=== PATIENT | female | born 1995 | race Caucasian/White ===

== ENCOUNTER 2017-07-25 13:00 | Emergency (ER) | payer OTHER ==
[2017-07-25] MEDS ORDERED: SODIUM CHLORIDE 0.9% 1000ML 1,000 ML IV ONE (13:11)
[2017-07-25] MEDS ORDERED: ONDANSETRON HCL 4 MG/2 ML SOL IV ONE (13:12)
[2017-07-25 13:19] LABS: APPEARANCE,URINE Cloudy; BILIRUBIN,URINE NEGATIVE (NEGATIVE); COLOR,URINE Yellow; GLUCOSE, URINE (UA) NEGATIVE (NEGATIVE); KETONES,URINE NEGATIVE (NEGATIVE); LEUKOCYTE ESTERASE ,URINE NEGATIVE (NEGATIVE); NITRATE,URINE NEGATIVE (NEGATIVE); OCCULT BLOOD,URINE NEGATIVE (NEG-TRACE); PH,URINE 8.5; UROBILINOGEN,URINE 0.2 (0.2-1.0 EU)
[2017-07-25] MEDS ORDERED: ONDANSETRON HCL 4 MG/2 ML SOL ONE (13:29)
[2017-07-25 13:32] LABS: BASOPHILS % (AUTO) 1 % (0-3); EOSINOPHILS % (AUTO) 1 % (0-9); HEMATOCRIT 40 % (35-47); HEMOGLOBIN 14.1 gm/dl (12.0-15.5); LYMPHOCYTES % (AUTO) 16.3 % (10-50); MEAN CORPUSCULAR HEMOGLOBIN 31.1 pg (27.0-32.0); MEAN CORPUSCULAR HGB CONC 35.3 gm/dl (32.0-36.0); MEAN CORPUSCULAR VOLUME 88 fL (81-99); MONOCYTES % (AUTO) 9.2 % (0-12); NEUTROPHILS % (AUTO) 73.2 % (37-80)
[2017-07-25 13:38] LABS: CRYSTALS 2+ (0-3 AVE/HPF); RBC,URINE NEGATIVE (0-3AV/HPF)
[2017-07-25 13:39] LABS: BACTERIA NEGATIVE (< 1+)
[2017-07-25 13:42] LABS: ALBUMIN 3.5 gm/dl (3.4-5.0); BILIRUBIN,TOTAL 0.3 mg/dl (0.2-1.0); CALCIUM 9.1 mg/dl (8.5-10.1); CARBON DIOXIDE 25.7 mEq/L (21-32); CREATININE 0.89 mg/dl (0.60-1.00); POTASSIUM 3.5 mMol/L (3.5-5.1); TOTAL PROTEIN 7.4 gm/dl (6.4-8.2)
[2017-07-25 13:45] VITALS: RESP 16; TEMP 98.3
[2017-07-25] MEDS ORDERED: SODIUM CHLORIDE 0.9% FLUSH 10 ML SOL IV PRN (13:47)
[2017-07-25 14:28] VITALS: O2SAT 100
[2017-07-25 14:49] VITALS: BP 119/67; PULSE 73
== END 2017-07-25 14:50 | disposition home or self-care (01) | DRG 641 ==
LOC: ED 13:00
DX: E86.0 Dehydration (principal); R42 Dizziness and giddiness; R07.9 Chest pain, unspecified; R61 Generalized hyperhidrosis; R55 Syncope and collapse
CPT/HCPCS: 80053; 81001; 85025; 93005; 96365; 96374; 99283; 99284; J2405

== ENCOUNTER 2018-07-14 18:47 | Observation (INO) | payer OTHER ==
[2018-07-14] MEDS ORDERED: SODIUM CHLORIDE 0.9% 1000ML 1,000 ML IV SCH ×2 (19:15)
[2018-07-14] MEDS ORDERED: SODIUM CHLORIDE 0.9% 1000ML 1,000 ML IV ONE (19:15)
[2018-07-14] MEDS ORDERED: SODIUM CHLORIDE 0.9% FLUSH 10 ML SOL IV PRN (19:18)
[2018-07-14 19:24] LABS: BASOPHILS % (AUTO) 1 % (0-3); EOSINOPHILS % (AUTO) 1 % (0-9); HEMATOCRIT 35 % (35-47); HEMOGLOBIN 11.6 gm/dl (12.0-15.5); LYMPHOCYTES % (AUTO) 15.6 % (10-50); MEAN CORPUSCULAR HGB CONC 33.5 gm/dl (32.0-36.0); MEAN CORPUSCULAR VOLUME 89 fL (81-99); MONOCYTES % (AUTO) 7.3 % (0-12); NEUTROPHILS % (AUTO) 75.8 % (37-80)
[2018-07-14 19:29] LABS: ALBUMIN 2.9 gm/dl (3.4-5.0); BILIRUBIN,TOTAL 0.3 mg/dl (0.2-1.0); CALCIUM 8.5 mg/dl (8.5-10.1); CARBON DIOXIDE 23.8 mEq/L (21-32); CREATININE 0.74 mg/dl (0.60-1.00); TOTAL PROTEIN 6.9 gm/dl (6.4-8.2)
[2018-07-14] MEDS ORDERED: ACETAMINOPHEN 1,000 MG/100 ML VIAL IV ONE (19:30)
[2018-07-14 19:42] LABS: POTASSIUM 2.9 mMol/L (3.5-5.1)
[2018-07-14] MEDS ORDERED: POTASSIUM CHLORIDE 2 MEQ/ML 10 MEQ, LIDOCAINE HCL 1% MDV 2 ML in SODIUM CHLORIDE 0.9% 1... IV ONE (19:43)
[2018-07-14] MEDS ORDERED: ACETAMINOPHEN 500 MG 500 MG TAB PO ONE (19:44)
[2018-07-14] MEDS ORDERED: ACETAMINOPHEN 500 MG 500 MG TAB ONE (19:46)
[2018-07-14] MEDS ORDERED: LIDOCAINE HCL 1% MPF 30 SOL ONE (19:47)
[2018-07-14] MEDS ORDERED: POTASSIUM CHLORIDE 2 MEQ/ML SOL IV ONE (19:47)
[2018-07-14] MEDS ORDERED: ONDANSETRON 4 MG ODT BU ONE (19:49)
[2018-07-14] MEDS ORDERED: ONDANSETRON 4 MG ODT ONE (19:50)
[2018-07-14 20:41] LABS: APPEARANCE,URINE Clear; BILIRUBIN,URINE NEGATIVE (NEGATIVE); COLOR,URINE Yellow; GLUCOSE, URINE (UA) NEGATIVE (NEGATIVE); KETONES,URINE TRACE (NEGATIVE); LEUKOCYTE ESTERASE ,URINE NEGATIVE (NEGATIVE); NITRATE,URINE NEGATIVE (NEGATIVE); OCCULT BLOOD,URINE NEGATIVE (NEG-TRACE); UROBILINOGEN,URINE 0.2 (0.2-1.0 EU)
[2018-07-14 20:49] LABS: BACTERIA NEGATIVE (< 1+); CRYSTALS NEGATIVE (0-3 AVE/HPF); EPITHELIAL CELLS NEGATIVE (SQUAMOUS); RBC,URINE NEG (0-3AV/HPF); WBC,URINE NEG (0-5AV/HPF)
[2018-07-14] MEDS ORDERED: ACETAMINOPHEN 500 MG 500 MG TAB PO PRN (21:44)
[2018-07-14] MEDS ORDERED: APAP/HYDROCODONE 1 EACH TABLET PO PRN (21:44)
[2018-07-14] MEDS: SODIUM CHLORIDE 0.45% 1000 ML 1,000 ML with POTASSIUM CHLORIDE 2 MEQ/ML 20 MEQ IV SCH (22:31)
[2018-07-14] MEDS: POTASSIUM CHLORIDE 10 MEQ TER PO SCH (22:31)
[2018-07-15] MEDS: POTASSIUM CHLORIDE 10 MEQ TER PO SCH (01:28)
[2018-07-15 01:33] VITALS: RESP 16
[2018-07-15 05:42] VITALS: BP 112/67; PULSE 62; TEMP 97.8; O2SAT 100
[2018-07-15 07:27] LABS: CALCIUM 8.4 mg/dl (8.5-10.1); CARBON DIOXIDE 25.1 mEq/L (21-32); CREATININE 0.58 mg/dl (0.60-1.00); POTASSIUM 3.9 mMol/L (3.5-5.1)
[2018-07-15] MEDS: SODIUM CHLORIDE 0.45% 1000 ML 1,000 ML with POTASSIUM CHLORIDE 2 MEQ/ML 20 MEQ IV SCH (08:35)
[2018-07-15] MEDS ORDERED: [UNRECOGNIZED DRUG - REMARK] PO SCH (09:00)
== END 2018-07-15 09:25 | disposition home or self-care (01) | DRG 641 ==
LOC: ED 18:47 → ACUTE CARE 21:34
PROVIDERS: ADMIT Family Medicine; ATTEND Family Medicine
DX: E87.6 Hypokalemia (principal); R10.9 Unspecified abdominal pain; Z3A.33 33 weeks gestation of pregnancy; R11.2 Nausea with vomiting, unspecified; R51 Headache; O26.893 Other specified pregnancy related conditions, third trimester
CPT/HCPCS: 36415; 59025; 80048; 80053; 81001; 85025; 93005; 93012; 99285; J3480; A9270-GY; J2001

== ENCOUNTER 2018-08-14 11:28 | Observation (INO) | payer OTHER ==
[2018-08-14 11:46] VITALS: O2SAT 98
[2018-08-14] MEDS ORDERED: LACTATED RINGERS 1,000 ML IV ONE (13:07)
[2018-08-14] MEDS ORDERED: SODIUM CHLORIDE 0.9% FLUSH 10 ML SOL IV SCH (13:15)
[2018-08-14 13:49] VITALS: BP 107/59; PULSE 80; RESP 18; TEMP 98.8
== END 2018-08-14 15:45 | disposition home or self-care (01) | DRG 833 ==
LOC: OBOP 11:28 → OB 13:03
PROVIDERS: ADMIT Emergency Medicine; ATTEND Emergency Medicine
DX: O47.1 False labor at or after 37 completed weeks of gestation (principal); Z3A.38 38 weeks gestation of pregnancy; O36.8130 Decreased fetal movements, third trimester, not applicable or unspecified
CPT/HCPCS: 36415; 59025; 80048; 81001; 85025; 87088

== ENCOUNTER 2018-08-14 20:38 | Observation (INO) | payer OTHER ==
[2018-08-14 11:46] VITALS: O2SAT 98
[2018-08-14 12:34] LABS: BASOPHILS % (AUTO) 0 % (0-3); EOSINOPHILS % (AUTO) 1 % (0-9); HEMATOCRIT 36 % (35-47); HEMOGLOBIN 11.5 gm/dl (12.0-15.5); LYMPHOCYTES % (AUTO) 14.6 % (10-50); MEAN CORPUSCULAR HEMOGLOBIN 27.9 pg (27.0-32.0); MEAN CORPUSCULAR VOLUME 87 fL (81-99); MONOCYTES % (AUTO) 6.6 % (0-12); NEUTROPHILS % (AUTO) 77.8 % (37-80)
[2018-08-14 12:44] LABS: CALCIUM 8.8 mg/dl (8.5-10.1); CARBON DIOXIDE 24.9 mEq/L (21-32); CREATININE 0.49 mg/dl (0.60-1.00); POTASSIUM 3.6 mMol/L (3.5-5.1)
[2018-08-14 12:49] LABS: APPEARANCE,URINE Clear; BILIRUBIN,URINE NEGATIVE (NEGATIVE); COLOR,URINE Yellow; GLUCOSE, URINE (UA) NEGATIVE (NEGATIVE); KETONES,URINE NEGATIVE (NEGATIVE); LEUKOCYTE ESTERASE ,URINE TRACE (NEGATIVE); NITRATE,URINE NEGATIVE (NEGATIVE); OCCULT BLOOD,URINE 1+ (NEG-TRACE); UROBILINOGEN,URINE 0.2 (0.2-1.0 EU)
[2018-08-14 13:03] LABS: BACTERIA 2+ (< 1+); CRYSTALS NEGATIVE (0-3 AVE/HPF); RBC,URINE 0-1 (0-3AV/HPF); WBC,URINE 0-1 (0-5AV/HPF)
[2018-08-15 01:29] VITALS: BP 118/57; PULSE 68; RESP 20; TEMP 96.8
== END 2018-08-15 07:20 | disposition home or self-care (01) | DRG 833 ==
LOC: OB 20:38
PROVIDERS: ADMIT Family Medicine; ATTEND Family Medicine
DX: O47.1 False labor at or after 37 completed weeks of gestation (principal); Z3A.38 38 weeks gestation of pregnancy; O36.8130 Decreased fetal movements, third trimester, not applicable or unspecified
CPT/HCPCS: 36415; 59025; 80048; 81001; 85025; 87088

== ENCOUNTER 2018-08-26 09:56 | Inpatient (IN) | payer OTHER ==
[2018-08-26] MEDS: SODIUM CHLORIDE 0.9% FLUSH 10 ML SOL IV SCH ×2 (10:15→21:57)
[2018-08-26] MEDS ORDERED: MEPIVACAINE HCL 1% MPF 30 ML/VIAL SOL INFIL PRN (11:25)
[2018-08-26] MEDS ORDERED: SODIUM CHLORIDE 0.9% FLUSH 10 ML SOL IV PRN (11:25)
[2018-08-26] MEDS ORDERED: OXYTOCIN 10000 MU/ML SOL IM PRN (11:25)
[2018-08-26] MEDS ORDERED: CARBOPROST 250 MCG/ML SOL IM PRN (11:25)
[2018-08-26] MEDS ORDERED: LACTATED RINGERS 1,000 ML IV PRN (11:25)
[2018-08-26] MEDS ORDERED: METHYLERGONOVINE MALEATE 0.2 MG/ML SOL IM PRN (11:25)
[2018-08-26] MEDS ORDERED: FENTANYL 100MCG/2ML SOL IV PRN (11:25)
[2018-08-26 13:28] LABS: BASOPHILS % (AUTO) 0 % (0-3); EOSINOPHILS % (AUTO) 1 % (0-9); HEMATOCRIT 38 % (35-47); HEMOGLOBIN 12.6 gm/dl (12.0-15.5); LYMPHOCYTES % (AUTO) 14.2 % (10-50); MEAN CORPUSCULAR HEMOGLOBIN 29.3 pg (27.0-32.0); MEAN CORPUSCULAR HGB CONC 32.8 gm/dl (32.0-36.0); MEAN CORPUSCULAR VOLUME 89 fL (81-99); MONOCYTES % (AUTO) 6.8 % (0-12); NEUTROPHILS % (AUTO) 77.9 % (37-80)
[2018-08-26] MEDS: LACTATED RINGERS 1,000 ML IV SCH ×3 (14:10→17:29)
[2018-08-26] MEDS ORDERED: DIPHENHYDRAMINE 50 MG/ML SOL IV PRN (14:22)
[2018-08-26] MEDS ORDERED: EPHEDRINE SULFATE 50 MG/ML SOL IV PRN (14:22)
[2018-08-26] MEDS ORDERED: NALBUPHINE HCL 20 MG/ML SOL IV PRN (14:22)
[2018-08-26] MEDS ORDERED: NALOXONE HYDROCHLORIDE 0.4 MG/ML SOL IV PRN (14:22)
[2018-08-26] MEDS ORDERED: LIDOCAINE HCL 2% MPF 10 ML SOL ONE (15:32)
[2018-08-26] MEDS ORDERED: LIDOCAINE 1% W/EPI MPF 30 ML SOL ONE (15:32)
[2018-08-26] MEDS ORDERED: ROPIVACAINE HYDROCHLORIDE 5 MG/ML SOL ONE (15:58)
[2018-08-26] MEDS ORDERED: FENTANYL 250 MCG/ 5ML SOL ONE (15:58)
[2018-08-26] MEDS ORDERED: METHYLERGONOVINE MALEATE 0.2 MG TAB PO PRN (21:52)
[2018-08-26] MEDS ORDERED: BENZOCAINE/MENTHOL 1 SPR TOP PRN (21:52)
[2018-08-26] MEDS ORDERED: APAP/HYDROCODONE 1 EACH TABLET PO PRN (21:52)
[2018-08-26] MEDS ORDERED: FLEET ENEMA PR PRN (21:52)
[2018-08-26] MEDS ORDERED: BISACODYL 10 MG SUP PR PRN (21:52)
[2018-08-26] MEDS ORDERED: TEMAZEPAM 15MG 15 MG CAP PO PRN (21:52)
[2018-08-26] MEDS ORDERED: WITCH HAZEL 1 EA PAD TOP PRN (21:52)
[2018-08-26] MEDS: IBUPROFEN 600 MG TAB PO PRN (22:20)
[2018-08-27] MEDS: LACTATED RINGERS 1,000 ML IV SCH (03:59)
[2018-08-27] MEDS: IBUPROFEN 600 MG TAB PO PRN ×2 (04:56→14:16)
[2018-08-27] MEDS: SODIUM CHLORIDE 0.9% FLUSH 10 ML SOL IV SCH ×2 (05:00→15:51)
[2018-08-27] MEDS ORDERED: ACETAMINOPHEN 325 MG PO PRN (09:06)
[2018-08-27] MEDS: MULTIVITAMIN2 1 EA TAB PO SCH (10:09)
[2018-08-27] MEDS: FOLIC ACID 1 MG TAB PO SCH (10:09)
[2018-08-27] MEDS: DOCUSATE SODIUM 100 MG SGL PO SCH ×2 (10:09→20:24)
[2018-08-28] MEDS: DOCUSATE SODIUM 100 MG SGL PO SCH (08:30)
[2018-08-28] MEDS: FOLIC ACID 1 MG TAB PO SCH (08:31)
[2018-08-28] MEDS: MULTIVITAMIN2 1 EA TAB PO SCH (08:31)
[2018-08-28] MEDS: IBUPROFEN 600 MG TAB PO PRN (08:31)
[2018-08-28 10:21] VITALS: BP 102/62; PULSE 72; RESP 20; TEMP 97.6; O2SAT 98
== END 2018-08-28 11:40 | disposition home or self-care (01) | DRG 807 ==
LOC: OB 09:56 → OBSVTOIN 09:56 → INTOOBSV 09:56 → UNDOADMOB 09:56 → OB 08-27 07:51 → UNDODISIN 08-28 11:40
PROVIDERS: ADMIT Family Medicine; ATTEND Family Medicine
PROC: 10E0XZZ Delivery of Products of Conception, External Approach (ICD-10-PCS; principal; 2018-08-26)
PROC: 6A550ZT Pheresis of Cord Blood Stem Cells, Single (ICD-10-PCS; 2018-08-26)
DX: O80 Encounter for full-term uncomplicated delivery (principal); Z37.0 Single live birth; Z3A.40 40 weeks gestation of pregnancy; O69.1XX0 Labor and delivery complicated by cord around neck, with compression, not applicable or unspecified
CPT/HCPCS: 36415; 59025; 85018; 85025; 94762; J0670; J2590; J2795; J3010; A4450; A9270-GY